=== PATIENT | female | born 1975 | race Caucasian/White ===

== ENCOUNTER → 2017-02-04 | Outpatient (CLI) | payer MEDICAID ==
[2017-02-04 09:23] LABS: CH 31.1; CHCM 33.4; HCT 38.6 % (34.0-46.0); HDW 2.24; HGB 12.9 gm/dL (11.4-16.0); MCH 31.4 pg (25.0-35.0); MCHC 33.6 g/dL (31.0-37.0); MCV 93.6 fL (80.0-100.0); Mean Platelet Volume 7.3; RBC 4.12 m/uL (3.80-5.40); RDW 12.4 % (11.5-15.5); WBC 5.8 k/uL (3.8-10.6)
[2017-02-04 11:34] LABS: ALT 32 U/L (9-52); AST 29 U/L (14-36); Alkaline Phosphatase 96 U/L (38-126); Anion Gap 10 mmol/L; Blood Urea Nitrogen 13 mg/dL (7-17); Calcium 9.7 mg/dL (8.4-10.2); Carbon Dioxide 23 mmol/L (22-30); Chloride 106 mmol/L (98-107); Cholesterol 226 mg/dL (<200); Creatine Kinase 123 U/L (30-135); Glucose 101 mg/dL (74-99); HDL Cholesterol 66 mg/dL (40-60); Non-African American GFR(MDRD) >60 (>60 ml/min/1.73 sqM); Potassium 4.5 mmol/L (3.5-5.1); Sodium 139 mmol/L (137-145); Total Bilirubin 0.6 mg/dL (0.2-1.3)
[2017-02-04 11:37] LABS: Rheumatoid Factor, Qnt 9 IU/mL (<12)
[2017-02-04 12:22] LABS: Vitamin B12 307 pg/mL (239-931)
[2017-02-06 11:14] LABS: HLA B27 NEGATIVE; HLA B27 Comment SEEBELOW
[2017-02-08 14:25] LABS: ANA w/Reflex to Titer NEGATIVE (NEGATIVE)
== END | disposition home or self-care (01) ==
LOC: LABWHC1 08:57
PROVIDERS: ATTEND Family Medicine
DX: M79.1 Myalgia (principal); R53.83 Other fatigue
CPT/HCPCS: 36415; 80053; 80061; 82306; 82550; 82607; 84439; 84443; 84480; 85027; 86038; 86431; 86812

== ENCOUNTER → 2018-05-12 | Outpatient (CLI) | payer MEDICAID ==
[2018-05-12 18:07] LABS: Albumin 4.3 g/dL (3.80-4.90); Albumin/Globulin Ratio 2.26 (1.20-2.10); Anion Gap 6.2 mmol/L (4.00-12.00); Calcium 9.5 mg/dL (8.7-10.3); Carbon Dioxide 25.8 mmol/L (21.6-31.8); Globulin 1.9 g/dL (2.1-3.7); Potassium 4.5 mmol/L (3.5-5.5); Total Bilirubin 0.5 mg/dL (0.2-1.2); Total Protein 6.2 g/dL (6.2-8.2)
[2018-05-12 18:32] LABS: Hemoglobin A1C 5.5 % (4.0-6.0)
== END | disposition home or self-care (01) ==
LOC: LABWHC1 08:42
PROVIDERS: ATTEND Nurse Practitioner Adult Health
DX: Z00.01 Encounter for general adult medical examination with abnormal findings (principal); F33.9 Major depressive disorder, recurrent, unspecified; R10.84 Generalized abdominal pain; R11.0 Nausea
CPT/HCPCS: 36415; 80053; 80061; 82150; 83036; 83690; 84443; 86677

== ENCOUNTER 2019-06-06 14:13 | Emergency (ER) | payer MEDICAID, OTHER ==
[2019-06-06 14:22] VITALS: BP 113/77; PULSE 67; RESP 20; TEMP 98
[2019-06-06] MEDS ORDERED: ACET/COD 300 MG/30 MG STARTER PACK 6 TAB BTL PO STA (14:29)
--- NOTE | 2019-06-06 14:46 | XR ---
EXAMINATION TYPE: XR ankle complete RT DATE OF EXAM: 06/06/2019 COMPARISON: NONE HISTORY: Pain FINDINGS: Three views of the ankle demonstrate the ankle mortise to be intact and symmetric. Diffuse soft tissu e edema laterally. Hypertrophic spurring along the medial malleolus. There is a tiny bony density adj acent to the lateral malleolus suspicious for avulsion fracture. Calcaneal spurs are noted. IMPRESSION: 1. Findings suspicious for avulsion fracture lateral malleolus. Extensive soft tissue edema.
--- NOTE | 2019-06-06 14:48 | XR ---
EXAMINATION TYPE: XR foot complete RT DATE OF EXAM: 06/06/2019 CLINICAL HISTORY: Right foot pain laterally after fall TECHNIQUE: Frontal, lateral, and oblique images of the right foot are obtained. COMPARISON: None FINDINGS: There is no acute fracture/dislocation evident in the right foot. Moderate plantar and sm all Achilles heel spurs are seen. The joint spaces in the right foot appear within normal limits. Old healed fracture deformity distal to the medial malleolus is well corticated. The overlying soft tiss ue appears unremarkable. IMPRESSION: There is no acute fracture or dislocation in the right foot.
--- NOTE | 2019-06-06 14:52 | ED ---
Fall HPI - General Chief Complaint: Fall Stated Complaint: FALL/[facility] Time Seen by Provider: 06/06/19 14:22 Source: patient Mode of arrival: wheelchair - History of Present Illness Initial Comments: 43-year-old female presenting for right lateral ankle pain x 20 minutes. Patient states she fell down to 3 steps at work cutting herself inverting her right ankle. Patient denies any head neck back AND chest injury. Patient denies any injury of the left lower extremity or upper extremity. She states that she has had a previous right ankle injury in the past. Patient states the re is no swelling at the lateral aspect of right ankle and pain with weightbearing she was concerned she had possible fracture. Patient denies any numbness tingling or loss of sensation coolness or pallor of the extremity. Patient denies any other complaints appears well upon arrival in good spirits. - Related Data Home Medications Medication Instructions Recorded Confirmed Cholecalciferol (Vitamin D3) 10,000 unit PO 03/21/16 [Vitamin D3] Thyroid,Pork [[place] Thyroid] 15 mg PO DAILY 03/21/16 03/21/16 Previous Rx's Medication Instructions Recorded Ibuprofen [Motrin] 800 mg PO Q8HR PRN #30 tab 03/21/16 Acetaminophen with Codeine 1 tab PO Q6H PRN 3 Days #12 tab 06/06/19 [Tylenol w/codeine #3] Allergies Allergy/AdvReac Type Severity Reaction Status Date / Time No Known Allergies Allergy Verified 06/06/19 14:21 Review of Systems ROS Statement: Those systems with pertinent positive or pertinent negative responses have been documented in the HPI. ROS Other: All systems not noted in ROS Statement are negative. Past Medical History Past Medical History: No Reported History History of Any Multi-Drug Resistant Organisms: None Reported Past Surgical History: Section, Cholecystectomy, Hysterectomy Additional Past Surgical History / Comment(s): 2 C-SECT. Past Anesthesia/Blood Transfusion Reactions: Postoperative Nausea & Vomiting (PONV) Past Psychological History: Anxiety Smoking Status: Never smoker Past Alcohol Use History: Occasional Past Drug Use History: None Reported General Exam - General Exam Comments Initial Comments: General: The patient is awake and alert, in no distress, and does not appear acutely ill. Eye: Pupils are equal, round and reactive to light, extra-ocular movements are intact. No nystagmus. There is normal conjunctiva bilaterally. No signs of icterus. Cardiovascular: There is a regular rate and rhythm. No murmur, rub or gallop is appreciated. Respiratory: Lungs are clear to auscultation, respirations are non-labored, breath sounds are equal. No wheezes, stridor, rales, or rhonchi. Musculoskeletal: Upon inspection of the ankles bilaterally there is significant soft tissue swelling over the right lateral malleolus. This is tender to palpation. Patient is able to range the ankle however there is pain no noted severe laxity. No tenderness to palpation of the proximal tibia and fibula. Patient is no tenderness to patient of the forefoot +2 dorsalis pedis pulses equal and comparison bilaterally. With range of motion at the ankle and foot. Sensation intact the proximal distal to injury site no evidence of foot drop Neurological: A&O x 3. CN II-XII intact, There are no obvious motor or sensory deficits. Coordination appears grossly intact. Speech is normal. Skin: Skin is warm and dry and no rashes or lesions are noted. Psychiatric: Cooperative, appropriate mood & affect, normal judgment. Limitations: no limitations Course Vital Signs 06/06/19 14:16 Temperature 98.0 F Pulse Rate 67 Respiratory 20 Rate Blood Pressure 113/77 O2 Sat by Pulse 96 Oximetry Medical Decision Making - Medical Decision Making 43-year-old female presenting for right ankle pain and swelling. Compartments soft compressible patient is neurovascularly intact imaging studies concerning for fibula chip fracture and also concern for a moderate to severe ankle sprain patient will be placed in a posterior mold prepatent synthetic splint with stirrups. Patient is neurovascularly intact after splint placement patient provided crutches and given nonweightbearing instructions until clearance by orthopedic surgery. Return parameters importance of follow-up with discussed patient verbalized understanding and was discharged appearing well Disposition Clinical Impression: Fractured lateral malleolus, Right ankle pain, Right ankle swelling Disposition: HOME SELF-CARE Condition: Good Instructions (If sedation given, give patient instructions): Ankle Fracture (ED) Additional Instructions: Please use medication as discussed. Please follow-up with orthopedic surgery in the next week, please use crutches for ambulation. Please return to emergency room if the symptoms increase or worsen or for any other concerns. Prescriptions: Acetaminophen with Codeine [Tylenol w/codeine #3] 1 tab PO Q6H PRN 3 Days #12 tab PRN Reason: Severe Pain Is patient prescribed a controlled substance at d/c from ED?: Yes When asked, does pt state using other controlled substances?: No If prescribed controlled substance>3 days was MAPS reviewed?: Prescribed <3 Days If opioid is for acute pain is fill amount 7 days or less?: Yes If Rx opioid, was Start Talking consent form obtained?: Yes Referrals: Pascual Davis MD [Primary Care Provider] - 1-2 days Hammad Grimm DO [Medical Doctor] - 1-2 days Time of Disposition: 14:51
== END 2019-06-06 15:33 | disposition home or self-care (01) ==
LOC: EC 14:13
DX: S82.61XA Displaced fracture of lateral malleolus of right fibula, initial encounter for closed fracture (principal); W10.9XXA Fall (on) (from) unspecified stairs and steps, initial encounter; X50.1XXA Overexertion from prolonged static or awkward postures, initial encounter; Y93.89 Activity, other specified; Y92.69 Other specified industrial and construction area as the place of occurrence of the external cause; Y99.0 Civilian activity done for income or pay
CPT/HCPCS: 29515; 99283

== ENCOUNTER → 2019-06-14 | Outpatient (CLI) | payer OTHER ==
--- NOTE | 2019-06-15 11:42 | CT ---
CT right ankle HISTORY: Trauma and pain, right ankle fracture Helical acquisition through the right ankle. Coronal and sagittal reconstructions, three-dimensional reconstructions on an alternate workstation Correlation to right ankle plain film 06/06/2019 Automated exposure control for dose reduction. DLP to 210.7 mGycm Multiple ossific densities are present adjacent to the medial malleolus of varying sizes, the largest measures approximately 5 to 6 mm, approximately 5 fragments are present. Difficult to assess acuity, there may be a small avulsion injury or chip fracture present, one fragment does not appear to have well-corticated margins. There is also spur noted at the medial aspect of the medial malleolus consis tent with chronic change. Multiple ossific densities are also present at the level of the distal fibu la. Crescentic ossific density may represent small avulsion injury. There is associated soft tissue s welling present. No dislocation. Plantar calcaneal spur is noted. There is enthesophyte at the insert ion of the Achilles tendon. Small ossific density also present at the talonavicular joint appears wel l-corticated, there is associated spurring present. Ankle mortise appears intact. Alignment and bone mineralization are maintained. Mild spurring at the tibiotalar joint. Joint spaces are within normal limits. IMPRESSION: Combination of subacute and chronic traumatic findings as described. Additional findings above.
--- NOTE | 2019-06-15 13:32 | CT ---
CT left ankle HISTORY: Fracture Helical acquisition through the left ankle. Coronal and sagittal reconstructions, three-dimensional r econstructions performed on an alternate workstation No plain film submitted for correlation. Automated exposure control for dose reduction. DLP 201 mGycm . Small ossific density at the level of the medial malleolus is thought to be well-corticated and not l ikely to be acute. Only soft tissue swelling is noted. There is a plantar calcaneal spur. Enthesophyt e present at the insertion of the Achilles tendon. Small ossific density present at the talonavicular joint is well-corticated and not felt likely to be acute. There is a lucency present at the level of the navicular bone which is intra-articular at the level of the talonavicular joint, no significant displacement, some local soft tissue swelling is present. No dislocation. IMPRESSION: Small fracture as described at the navicular bone. Additional findings above.
== END | disposition home or self-care (01) ==
LOC: RADCTMAIN 16:01
PROVIDERS: ATTEND Orthopaedic Surgery
DX: M25.571 Pain in right ankle and joints of right foot (principal)

== ENCOUNTER → 2021-02-10 | Outpatient (CLI) | payer MEDICAID, OTHER | END | disposition home or self-care (01) | LOC: LABWHC1 11:43 | PROVIDERS: ATTEND Emergency Medicine | DX: Z20.822 Contact with and (suspected) exposure to COVID-19 (principal) | CPT/HCPCS: 87635 ==

== ENCOUNTER → 2021-02-11 | Outpatient (CLI) | payer MEDICAID, OTHER | END | disposition home or self-care (01) | LOC: LABWHC1 13:01 | PROVIDERS: ATTEND Emergency Medicine | DX: Z20.822 Contact with and (suspected) exposure to COVID-19 (principal) | CPT/HCPCS: 87635 ==

== ENCOUNTER 2021-03-21 10:25 | Emergency (ER) | payer MEDICAID, OTHER ==
[2021-03-21 10:43] VITALS: BP 130/95; PULSE 71; RESP 16; TEMP 99.1
[2021-03-21] MEDS: PROPARACAINE 0.5% OPHTH DROPS 15 ML BTL RIGHT EYE STA ×2 (10:47→11:00)
[2021-03-21] MEDS: FLUORESCEIN STRIPS 1 MG STRIP RIGHT EYE ONE ×2 (10:47→11:00)
[2021-03-21] MEDS ORDERED: TOBRAMYCIN 0.3% OPHTH OINT 3.5 GM TUBE RIGHT EYE STA (10:57)
[2021-03-21] MEDS ORDERED: AMOXIC-POT CLAV 875MG STARTER PACK 2 TAB BTL PO STA (11:02)
--- NOTE | 2021-03-21 11:02 | ED ---
Eye Problem HPI - General Chief complaint: Eye Problems Stated complaint: Eye issues Time Seen by Provider: 03/21/21 10:44 Source: patient, RN notes reviewed Mode of arrival: ambulatory Limitations: no limitations - History of Present Illness Initial comments: 45-year-old female presents emergency Department with chief complaint of right eye irritation. Patient states started a few days ago has worsened throughout the night no visual changes no drainage from her eyes she states is redness of her lower eyelid and in her right cheek. No fevers or chills no trauma denies any contact lens wearing. - Related Data Home Medications Medication Instructions Recorded Confirmed Cholecalciferol (Vitamin D3) 10,000 unit PO 03/21/16 [Vitamin D3] Thyroid,Pork [[place] Thyroid] 15 mg PO DAILY 03/21/16 03/21/16 Previous Rx's Medication Instructions Recorded Ibuprofen [Motrin] 800 mg PO Q8HR PRN #30 tab 03/21/16 Acetaminophen with Codeine 1 tab PO Q6H PRN 3 Days #12 tab 06/06/19 [Tylenol w/codeine #3] Amoxicillin/Potassium Clav 1 tab PO Q12HR #20 tab 03/21/21 [Augmentin 875-125 Tablet] Allergies Allergy/AdvReac Type Severity Reaction Status Date / Time No Known Allergies Allergy Verified 03/21/21 10:42 Review of Systems ROS Statement: Those systems with pertinent positive or pertinent negative responses have been documented in the HPI. ROS Other: All systems not noted in ROS Statement are negative. Past Medical History Past Medical History: No Reported History History of Any Multi-Drug Resistant Organisms: MRSA Date of last positivie culture/infection: 11/08/19 MDRO Source:: NASAL MRSA Past Surgical History: Section, Cholecystectomy, Hysterectomy Additional Past Surgical History / Comment(s): 2 C-SECT. Past Anesthesia/Blood Transfusion Reactions: Postoperative Nausea & Vomiting (PONV) Past Psychological History: Anxiety Smoking Status: Never smoker Past Alcohol Use History: Occasional Past Drug Use History: None Reported General Exam Limitations: no limitations General appearance: alert, in no apparent distress Head exam: Present: atraumatic, normocephalic, normal inspection Eye exam: Present: PERRL, EOMI, periorbital swelling (Mild right lower eyelid noted sty, surrounding erythema of the right upper cheek). Absent: normal appearance, scleral icterus, conjunctival injection ENT exam: Present: normal exam, normal oropharynx, mucous membranes moist Neck exam: Present: normal inspection. Absent: tenderness, meningismus, lymphadenopathy Respiratory exam: Present: normal lung sounds bilaterally. Absent: respiratory distress, wheezes, rales, rhonchi, stridor Cardiovascular Exam: Present: regular rate, normal rhythm, normal heart sounds. Absent: systolic murmur, diastolic murmur, rubs, gallop, clicks Course Vital Signs 03/21/21 10:39 Temperature 99.1 F Pulse Rate 71 Respiratory 16 Rate Blood Pressure 130/95 O2 Sat by Pulse 99 Oximetry Medical Decision Making - Medical Decision Making Patient has a right eye lower lid stye with some extending erythema was placed on treatment, warm compresses, oral antibiotics return parameters were discussed. Disposition Clinical Impression: Hordeolum of right eye Disposition: HOME SELF-CARE Condition: Stable Instructions (If sedation given, give patient instructions): [place] (ED) Additional Instructions: Please return to the Emergency Department if symptoms worsen or any other concerns. Prescriptions: Amoxicillin/Potassium Clav [Augmentin 875-125 Tablet] 1 tab PO Q12HR #20 tab Is patient prescribed a controlled substance at d/c from ED?: No Referrals: None,Stated [Primary Care Provider] - 1-2 days Time of Disposition: 11:02
== END 2021-03-21 11:09 | disposition home or self-care (01) ==
LOC: EC 10:25
DX: H00.012 Hordeolum externum right lower eyelid (principal); Z79.890 Hormone replacement therapy; Z79.1 Long term (current) use of non-steroidal anti-inflammatories (NSAID)
CPT/HCPCS: 99283

== ENCOUNTER → 2023-04-03 | Outpatient (CLI) | payer MEDICAID ==
[2023-04-03 12:15] LABS: Basophils # (A) 0.02 X 10*3/uL (0.00-0.10); Basophils % (A) 0.4 %; Eosinophils # (A) 0.07 X 10*3/uL (0.04-0.35); Eosinophils % (A) 1.5 %; HGB 12.9 d/dL (12.0-15.0); Lymphocytes # (A) 1.43 X 10*3/uL (0.90-5.00); Lymphocytes % (A) 30.3 %; MCH 31.1 pg (27.0-32.0); MCHC 32.3 d/dL (32.0-37.0); MCV 96.4 FL (80.0-97.0); Mean Platelet Volume 11.2 FL (9.5-12.2); Monocytes # (A) 0.37 X 10*3/uL (0.20-1.00); Monocytes % (A) 7.8 %; NRBC Per 100 WBC 0 X 10*3/uL (0.00-0.01); Neutrophils # (A) 2.82 X 10*3/uL (1.80-7.70); Neutrophils % (A) 59.8 %; Platelet Count 291 X 10*3/uL (140-440); RBC 4.15 X 10*6/uL (4.10-5.20); RDW 12.8 % (11.5-14.5); WBC 4.72 X 10*3/uL (4.50-10.00)
[2023-04-03 13:02] LABS: ALT 10 U/L (8-44); AST 26 U/L (13-35); Albumin 4.5 d/dL (3.8-4.9); Albumin/Globulin Ratio 1.96 Ratio (1.60-3.17); Alkaline Phosphatase 73 U/L (41-126); BUN/Creat Ratio 17.14 Ratio (12.00-20.00); Carbon Dioxide 25.3 mmol/L (21.6-31.8); Chloride 103 mmol/L (96-109); Chol/HDL Ratio 2.56 Ratio; Globulin 2.3 d/dL (1.6-3.3); Glucose 96 mg/dL (70-110); LDL Cholesterol,Calculated 113.5 mg/dL (0.0-131.0); Potassium 4.6 mmol/L (3.5-5.5); Sodium 141 mmol/L (135-145); T4, Free (Free Thyroxine) 1.19 ng/dL (0.80-1.80); Total Bilirubin 0.5 mg/dL (0.3-1.2); Total Protein 6.8 d/dL (6.2-8.2); VLDL Calculation 19.36 mg/dL (5.00-40.00)
== END | disposition home or self-care (01) ==
LOC: LABWHC1 07:27
PROVIDERS: ATTEND Nurse Practitioner Family
DX: Z00.01 Encounter for general adult medical examination with abnormal findings (principal)
CPT/HCPCS: 36415; 80053; 80061; 82306; 83036; 84439; 84443; 85025

== ENCOUNTER 2023-11-23 20:01 | Emergency (ER) | payer MEDICAID ==
[2023-11-23 20:12] VITALS: RESP 16
[2023-11-23] MEDS: AMPICILLIN-SULBACTAM 3 GM in SODIUM CHLORIDE 0.9% 100 ML IVPB STA (20:57)
--- NOTE | 2023-11-23 21:10 | ED ---
Animal Bite HPI - General Chief Complaint: Animal Bite Stated Complaint: cat scratches Time Seen by Provider: 11/23/23 20:15 Source: patient Mode of arrival: ambulatory Limitations: no limitations - History of Present Illness Initial Comments: 47-year-old female presenting with chief complaint of cat bite. Patient states that her cat bit her 2 days ago. States that today she noticed there was some worsening redness around the area, she was seen at urgent care and started on antibiotics was told to come to the ER with any worsening symptoms. She states as the day is gone on her pain is worsened. States that she has had some mild discharge from the wound. No fevers. No red streaking up the leg. - Related Data Home Medications Medication Instructions Recorded Confirmed Cholecalciferol (Vitamin D3) 10,000 unit PO 03/21/16 [Vitamin D3] Thyroid,Pork [[place] Thyroid] 15 mg PO DAILY 03/21/16 03/21/16 Previous Rx's Medication Instructions Recorded Ibuprofen [Motrin] 800 mg PO Q8HR PRN #30 tab 03/21/16 Acetaminophen with Codeine 1 tab PO Q6H PRN 3 Days #12 tab 06/06/19 [Tylenol w/codeine #3] Amoxicillin/Potassium Clav 1 tab PO Q12HR #20 tab 03/21/21 [Augmentin 875-125 Tablet] Amoxic-Pot Clav 875-125Mg 1 tab PO Q12HR 10 Days #20 tab 11/23/23 [Augmentin 875-125] Allergies Allergy/AdvReac Type Severity Reaction Status Date / Time No Known Allergies Allergy Verified 11/23/23 20:06 Review of Systems ROS Statement: Those systems with pertinent positive or pertinent negative responses have been documented in the HPI. ROS Other: All systems not noted in ROS Statement are negative. Past Medical History Past Medical History: No Reported History Additional Past Medical History / Comment(s): allergies History of Any Multi-Drug Resistant Organisms: MRSA Date of last positivie culture/infection: 11/08/19 MDRO Source:: NASAL MRSA Past Surgical History: Section, Cholecystectomy, Hysterectomy Additional Past Surgical History / Comment(s): 2 C-SECT. Past Anesthesia/Blood Transfusion Reactions: Postoperative Nausea & Vomiting (PONV) Past Psychological History: Anxiety, Depression Smoking Status: Never smoker Past Alcohol Use History: Occasional Past Drug Use History: None Reported General Exam Limitations: no limitations General appearance: alert, in no apparent distress Head exam: Present: atraumatic, normocephalic Eye exam: Present: normal appearance, EOMI Neck exam: Present: normal inspection. Absent: meningismus Respiratory exam: Absent: respiratory distress Cardiovascular Exam: Present: regular rate Right Lower Leg exam: Present: full ROM, tenderness, swelling Neurological exam: Present: alert, oriented X3 Psychiatric exam: Present: normal affect, normal mood Skin exam: Present: erythema Course Vital Signs 11/23/23 11/23/23 20:07 22:21 Temperature 98.0 F 98.1 F Pulse Rate 79 72 Respiratory 16 16 Rate Blood Pressure 130/76 122/71 O2 Sat by Pulse 100 100 Oximetry Medical Decision Making - Medical Decision Making Was pt. sent in by a medical professional or institution (, SATHISH, ARCHEOLOGIST, urgent care, hospital, or penitentiary...) When possible be specific @ -No Did you speak to anyone other than the patient for history (EMS, parent, family, police, friend...)? What history was obtained from this source @ -No Did you review nursing and triage notes (agree or disagree)? Why? @ -I reviewed and agree with nursing and triage notes Were old charts reviewed (outside hosp., previous admission, EMS record, old EKG, old radiological studies, urgent care reports/EKG's, penitentiary records)? Report findings @ -No old charts were reviewed Differential Diagnosis (chest pain, altered mental status, abdominal pain women, abdominal pain men, vaginal bleeding, weakness, fever, dyspnea, syncope, headache, dizziness, GI bleed, back pain, seizure, CVA, palpatations, mental health, musculoskeletal)? @ -Differential includes cellulitis, abscess, allergic reaction, this is not an all-inclusive list EKG interpreted by me (3pts min.). @ -As above X-rays interpreted by me (1pt min.). @ -None done CT interpreted by me (1pt min.). @ -None done U/S interpreted by me (1pt. min.). @ -None done What testing was considered but not performed or refused? (CT, X-rays, U/S, l abs)? Why? @ -None What meds were considered but not given or refused? Why? @ -None Did you discuss the management of the patient with other professionals (professionals i.e. , SATHISH, ARCHEOLOGIST, lab, RT, psych nurse, social psychologist, peer health promoter, teacher, promotion officer, employment case manager)? Give summary @ -No Was smoking cessation discussed for >3mins.? @ -No Was critical care preformed (if so, how long)? @ -No Were there social determinants of health that impacted care today? How? (Homelessness, low income, unemployed, alcoholism, drug addiction, transportation, low edu. Level, literacy, decrease access to med. care, residential, rehab)? @ -No Was there de-escalation of care discussed even if they declined (Discuss DNR or withdrawal of care, Hospice)? DNR status @ -No What co-morbidities impacted this encounter? (DM, HTN, Smoking, COPD, CAD, Cancer, CVA, ARF, Chemo, Hep., AIDS, mental health diagnosis, sleep apnea, morbid obesity)? @ -None Was patient admitted / discharged? Hospital course, mention meds given and route, prescriptions, significant lab abnormalities, going to OR and other pertinent info. @ -47-year-old female presenting with chief complaint of redness and swelling surrounding a cat bite to the right lower leg that she received 2 days ago. She was seen at urgent care and started on antibiotics today but came to the ER because she was having worsening pain. On exam there is redness and swelling about 4cm x 5cm. No red streaking up the leg or fevers. Patient is given 1 dose of IV Unasyn. Tetanus was updated today at urgent care. She is then instructed to continue on Augmentin. She is given strict return parameters. Discharged home. Follow-up with PCP. Report back to ER with any new or worsening symptoms. Discussed return parameters and answered all questions. Sathish collins conveyed verbal understanding and agreed to the plan. I discussed this case in detail with my attending Dr. Odonnell Undiagnosed new problem with uncertain prognosis? @ -No Drug Therapy requiring intensive monitoring for toxicity (Heparin, Nitro, Insulin, Cardizem)? @ -No Were any procedures done? @ -No Diagnosis/symptom? @ -Cat bite cellulitis Acute, or Chronic, or Acute on Chronic? @ -Acute Uncomplicated (without systemic symptoms) or Complicated (systemic symptoms)? @ -Uncomplicated Side effects of treatment? @ -No Exacerbation, Progression, or Severe Exacerbation? @ -No Poses a threat to life or bodily function? How? (Chest pain, [place], [place], pneumonia, PE, COPD, DKA, ARF, appy, cholecystitis, CVA, Diverticulitis, Homicidal, Suicidal, threat to staff... and all critical care pts) @ -Low likelihood Disposition Clinical Impression: Cat bite Disposition: HOME SELF-CARE Condition: Good Instructions (If sedation given, give patient instructions): Animal Bite (ED) Additional Instructions: Follow-up with PCP. Report back to ER with any new or worsening symptoms, including but not limited to worsening redness, increased tenderness, red streaking up the leg, fevers, increased discharge from the wound. Prescriptions: Amoxic-Pot Clav 875-125Mg [Augmentin 875-125] 1 tab PO Q12HR 10 Days #20 tab Is patient prescribed a controlled substance at d/c from ED?: No Referrals: Rigo Arora MD [Primary Care Provider] - 1-2 days Time of Disposition: 21:10
[2023-11-23 22:22] VITALS: BP 122/71; PULSE 72; TEMP 98.1
== END 2023-11-23 22:22 | disposition home or self-care (01) ==
LOC: EC 20:01
DX: S81.851A Open bite, right lower leg, initial encounter (principal); L03.115 Cellulitis of right lower limb; W55.01XA Bitten by cat, initial encounter
CPT/HCPCS: 99283; 96365; J0295